=== PATIENT | female | born 2000 | race Caucasian/White ===

== ENCOUNTER 2019-07-29 13:59 | Outpatient (CLI) | payer OTHER ==
--- NOTE | 2019-07-29 14:35 | RAD ---
EXAM: XR Lumbar Spine 2 Or 3 View PROVIDED CLINICAL HISTORY: Low back pain for past 4 weeks. No history of injury. 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 There is mild right convex curvature of the lumbar spine. The verteb ral body heights are within normal limits. There is mild narrowing of the intervertebral disc space at the lumbosacral junction. No fracture or subluxation is appreciated. There is pseudoarticulation o f the right lateral mass of L5 with S1 related to partial sacralization of L5. IMPRESSION: No acute findings involving the lumbar spine. Partial sacralization of L5 vertebral body on the right with pseudoarticulation of the right lateral mass of L5 with S1.
--- NOTE | 2019-07-29 14:39 | RAD ---
Sacroiliac joints 3 views HISTORY: Pain. FINDINGS: Joint spaces are preserved. No erosions. Sacral alae are intact. Partial sacralization of the lowest lumbar segment, with the enlarged right transverse process articu lating with the upper sacrum. Intrauterine contraceptive device partially visualized. IMPRESSION : Articulation of the enlarged right L5 transverse process with the upper sacrum, sometimes a source of pain. Consider Bertolotti syndrome.
== END 2019-07-29 14:00 | disposition home or self-care (01) ==
LOC: SCSRAD 13:59
PROVIDERS: ATTEND Chiropractor
DX: M46.07 Spinal enthesopathy, lumbosacral region (principal); Q76.49 Other congenital malformations of spine, not associated with scoliosis
CPT/HCPCS: 72100; 72202